=== PATIENT | female | born 1955 | race Caucasian/White ===

== ENCOUNTER 2020-04-09 08:49 | Emergency (ER) | payer OTHER ==
[~2020-04-09] VITALS: Ht 170.2 cm; Wt 127.3 kg
[2020-04-09 09:09] VITALS: BP 153/86
[2020-04-09] MEDS ORDERED: ROPINIRole 1mg tablet PO STA (09:30)
== END 2020-04-09 10:06 | disposition home or self-care (01) ==
LOC: ER 08:50
DX: Z76.5 Malingerer [conscious simulation] (principal); G89.29 Other chronic pain; M79.604 Pain in right leg; M79.605 Pain in left leg; G25.81 Restless legs syndrome; Z59.0 Homelessness; Z88.8 Allergy status to other drugs, medicaments and biological substances
CPT/HCPCS: 99283